=== PATIENT | female | born 1975 | race Two or more races ===

== ENCOUNTER 2016-11-03 09:47 | Observation (INO) | payer MEDICAID ==
[~2016-11-03] VITALS: Ht 167.6 cm; Wt 109.8 kg
[2016-11-03] MEDS ORDERED: PREN-88 PO (11:16)
== END 2016-11-03 12:25 | disposition home or self-care (01) ==
LOC: EDBD → L&D 09:47
PROVIDERS: ADMIT Obstetrics & Gynecology; ATTEND Obstetrics & Gynecology
DX: O24.419 Gestational diabetes mellitus in pregnancy, unspecified control (principal); Z3A.35 35 weeks gestation of pregnancy
CPT/HCPCS: 59025; 76815; 76818; G0378

== ENCOUNTER 2016-11-07 17:31 | Observation (INO) | payer MEDICAID ==
[~2016-11-07] VITALS: Ht 167.6 cm; Wt 109.8 kg
[~2016-11-07 17:31] MED LIST: PREN-88 PO
[2016-11-07] MEDS: LACTATED RINGERS 1,000 ML IV SCH (20:46)
[2016-11-07] MEDS ORDERED: GLYBURIDE 1.25 MG PO NR (21:00)
[2016-11-08] MEDS: LACTATED RINGERS 1,000 ML IV SCH (03:12)
[2016-11-08] MEDS ORDERED: GLYBURIDE 1.25 MG PO SCH (06:40)
[2016-11-08] MEDS ORDERED: GLYBURIDE (16:19)
== END 2016-11-08 16:35 | disposition home or self-care (01) ==
LOC: L&D 17:31 → EDBD 17:31
PROVIDERS: ADMIT Obstetrics & Gynecology; ATTEND Obstetrics & Gynecology
DX: O24.419 Gestational diabetes mellitus in pregnancy, unspecified control (principal); Z3A.36 36 weeks gestation of pregnancy
CPT/HCPCS: 76805; 76815; 76818; 82962; 96360; 96361; G0378; J7120